=== PATIENT | female | born 1970 | race African-American/Black ===

== ENCOUNTER 2017-09-19 08:41 | Emergency (ER) | payer OTHER ==
[~2017-09-19] VITALS: Ht 175.3 cm; Wt 110.7 kg
[2017-09-19] MEDS ORDERED: CARVEDILOL12.5 MG PO (08:58)
[2017-09-19] MEDS ORDERED: HYDROCHLOROTH12.5 M1 PO (08:59)
[2017-09-19] MEDS ORDERED: AMLODIPINE BESY10 MG PO (08:59)
[2017-09-19 09:26] LABS: ABSOLUTE LYMPHOCYTES 2.1 thou/uL (0.8-5.3); ABSOLUTE MONOCYTES 0.5 thou/uL (0.0-1.2); ABSOLUTE NEUTROPHILS 4.3 thou/uL (1.6-8.1); BASOPHILS 0.4 %; HEMATOCRIT 36.6 % (37.0-47.0); HEMOGLOBIN 12.1 gm/dL (12.0-15.0); LYMPHOCYTES 29.7 %; MCH 28.1 pg (26.0-34.0); MONOCYTES 7.1 %; NUCLEATED RBCS 0 /100WBC; POLYS 62.8 %; RBC 4.31 mil/uL (4.20-5.00); RDW-CV 15.2 % (10.5-14.5); WBC 6.9 thou/uL (4.0-11.0)
[2017-09-19 09:28] LABS: URINE BILIRUBIN NEGATIVE (Negative); URINE BLOOD 2+ (Negative); URINE CLARITY CLEAR; URINE COLOR YELLOW; URINE GLUCOSE-RANDOM NEGATIVE (Negative); URINE KETONES NEGATIVE (Negative); URINE LEUKOCYTES-REFLEX NEGATIVE (Negative); URINE NITRITE-REFLEX NEGATIVE (Negative); URINE PROTEIN NEGATIVE (Negative); URINE SPECIFIC GRAVITY 1.015 (1.005-1.030); URINE UROBILINOGEN 0.2 E.U./dl (0.2-1.0)
[2017-09-19 09:32] LABS: ANION GAP 9 mmol/L (7-16); BUN 8 mg/dL (7-18); CALCIUM 9.7 mg/dL (8.5-10.1); CHLORIDE 101 mmol/L (98-107); CO2 27 mmol/L (21-32); GLUCOSE 132 mg/dL (70-99); POTASSIUM 3.3 mmol/L (3.5-5.1); SODIUM 137 mmol/L (136-145)
[2017-09-19 09:34] LABS: SQUAMOUS 0-3 Few /LPF (0-3); URINE RBC 3-10 Few /HPF (0-2); URINE WBC-REFLEX 0-5 Rare /HPF (0-5)
[2017-09-19 09:35] LABS: BACTERIA-REFLEX 1-9 Few /HPF (None Seen); CASTS None Seen /LPF (None Seen); CRYSTALS None Seen /LPF (None Seen); MUCUS None Seen strn/LPF (None Seen)
[2017-09-19 09:35] LABS: APTT 25.6 Seconds (25.0-31.3); INR 1.1; PROTIME 10.6 Seconds (9.20-11.50)
[2017-09-19 09:44] LABS: ALBUMIN 3.5 g/dL (3.4-5.0); ALKALINE PHOSPHATASE 62 U/L (46-116); NT-PRO BRAIN NAT PEPTIDE 330 pg/mL (<300); SGOT 32 U/L (15-37); SGPT 44 U/L (30-65); TOTAL BILIRUBIN 1.1 mg/dL (<0.1-1.0); TOTAL PROTEIN 8.4 g/dL (6.4-8.2); TROPONIN-I LEVEL <0.06 ng/mL (<0.06)
[2017-09-19 09:55] LABS: PLATELET COUNT* 200 thou/uL (150-400)
[2017-09-19 09:56] LABS: GIANT PLATELETS OCCASIONAL
[2017-09-19 10:09] LABS: MPV 10.7 fl. (7.2-11.1)
[2017-09-19] MEDS ORDERED: NORCO 5-325 TA1 EACH PO (10:28)
[2017-09-19] MEDS ORDERED: ZOFRAN ODT4 MG SUBLING (10:28)
[2017-09-19 10:41] VITALS: BP 146/85
--- NOTE | 2017-09-19 17:40 | EKG ---
[place] [address] ELECTROCARDIOGRAM REPORT Name: MARLENY VALENTIN Room: [facility]#: [id number] Admission: 09/19/17 Attend Phys: Discharge: 09/19/17 Date of : 68 Report #: [id number] THIS REPORT FOR: //name// [facility] ED Test Date: 2017-09-19 Test Time: 09:02:00 Pat Name: MARLENY VALENTIN Department: Room: Gender: F Commercial Property Administrator: Tao TRUJILLO : 1970 Requested By: Mazin Prince Order Number: [id number] MD: Leon Zuniga Measurements Intervals [place] Rate: 74 P: 62 NE: 168 QRS: 24 QRSD: 80 T: 17 QT: 390 QTc: 433 Interpretive Statements Sinus rhythm No previous ECG available for comparison Electronically Signed On 09-19-2017 17:40:36 HEALTH EDUCATION COORDINATOR by Leon Zuniga [email or web address] <ELECTRONICALLY SIGNED> By: Leon Zuniga MD, [facility] 09/19/17 1740 0902 09 Leon Zuniga MD, FACC /EPI
== END 2017-09-19 10:42 | disposition home or self-care (01) ==
LOC: M.ERS 08:41
PROVIDERS: Family Medicine
DX: R51 Headache (principal); I10 Essential (primary) hypertension; E11.9 Type 2 diabetes mellitus without complications; F10.99 Alcohol use, unspecified with unspecified alcohol-induced disorder; Z98.890 Other specified postprocedural states

== ENCOUNTER 2018-05-11 09:58 | Emergency (ER) | payer OTHER ==
[~2018-05-11] VITALS: Ht 175.3 cm; Wt 105.2 kg
[~2018-05-11 09:58] MED LIST: AMLODIPINE BESY10 MG PO; CARVEDILOL12.5 MG PO; HYDROCHLOROTH12.5 M1 PO; NORCO 5-325 TA1 EACH PO; ZOFRAN ODT4 MG SUBLING
[2018-05-11] MEDS ORDERED: KLOR-CON-EF 2525 ME1 PO (10:10)
[2018-05-11] MEDS ORDERED: LIPITOR 20 MG T20 M1 PO (10:10)
[2018-05-11] MEDS ORDERED: GLUCOTROL5 MG PO (10:10)
[2018-05-11] MEDS ORDERED: ASPIR 8181 MG PO (10:10)
[2018-05-11 10:22] LABS: URINE BLOOD 3+ (Negative); URINE CLARITY CLOUDY; URINE COLOR YELLOW; URINE GLUCOSE-RANDOM NEGATIVE (Negative); URINE KETONES TRACE (Negative); URINE LEUKOCYTES-REFLEX NEGATIVE (Negative); URINE NITRITE-REFLEX NEGATIVE (Negative); URINE PROTEIN 1+ (Negative); URINE SPECIFIC GRAVITY 1.025 (1.005-1.030); URINE UROBILINOGEN 0.2 E.U./dl (0.2-1.0)
[2018-05-11 10:24] LABS: ICTOTEST (BILI CONFIRMATORY) Negative (Negative); URINE BILIRUBIN 1+ (Negative)
[2018-05-11 10:32] LABS: CASTS None Seen /LPF (None Seen); CRYSTALS None Seen /LPF (None Seen); SQUAMOUS >10 Many /LPF (0-3)
[2018-05-11 10:33] LABS: BACTERIA-REFLEX >30 Many /HPF (None Seen); URINE RBC None Seen /HPF (0-2); URINE WBC-REFLEX 0-5 Rare /HPF (0-5)
[2018-05-11 10:42] LABS: APTT 24.1 Seconds (25.0-31.3); INR 1.1; PROTIME 10.8 Seconds (9.20-11.50)
[2018-05-11 10:52] LABS: ABSOLUTE LYMPHOCYTES 1.5 thou/uL (0.8-5.3); ABSOLUTE MONOCYTES 0.3 thou/uL (0.0-1.2); ABSOLUTE NEUTROPHILS 1.6 thou/uL (1.6-8.1); BASOPHILS 0.6 %; EOSINOPHILS 0.5 %; HEMATOCRIT 37.2 % (37.0-47.0); HEMOGLOBIN 12.3 gm/dL (12.0-15.0); LYMPHOCYTES 45.4 %; MCH 27.9 pg (26.0-34.0); MCV 84.6 fL (80.0-100.0); MONOCYTES 7.6 %; MPV 9.8 fl. (7.2-11.1); NUCLEATED RBCS 0 /100WBC; PLATELET COUNT* 176 thou/uL (150-400); POLYS 45.9 %; RDW-CV 15.1 % (10.5-14.5); WBC 3.4 thou/uL (4.0-11.0)
[2018-05-11 11:00] LABS: ANION GAP 9 mmol/L (7-16); BUN 13 mg/dL (7-18); CHLORIDE 100 mmol/L (98-107); CO2 26 mmol/L (21-32); CREATININE 1.1 mg/dL (0.6-1.3); GLUCOSE 198 mg/dL (70-99); SODIUM 135 mmol/L (136-145)
[2018-05-11 11:11] LABS: ALBUMIN 3.3 g/dL (3.4-5.0); ALKALINE PHOSPHATASE 101 U/L (46-116); NT-PRO BRAIN NAT PEPTIDE 8 pg/mL (<300); SGOT 42 U/L (15-37); SGPT 87 U/L (30-65); TOTAL BILIRUBIN 1.9 mg/dL (<0.1-1.0); TOTAL PROTEIN 8.3 g/dL (6.4-8.2); TROPONIN-I LEVEL <0.06 ng/mL (<0.06)
[2018-05-11 11:12] LABS: POTASSIUM 2.4 mmol/L (3.5-5.1)
[2018-05-11] MEDS ORDERED: POTASSIUM20 PO (11:41)
[2018-05-11] MEDS ORDERED: ZOFRAN ODT4 MG SUBLING (11:41)
[2018-05-11 11:51] VITALS: BP 127/80
--- NOTE | 2018-05-12 10:57 | EKG ---
[place] [address] ELECTROCARDIOGRAM REPORT Name: BARBIECONSTANTINOMARLENY CHAPIN Room: [facility]#: [id number] Admission: 05/11/18 Attend Phys: Discharge: 05/11/18 Date of : 68 Report #: [id number] THIS REPORT FOR: //name// [facility] ED Test Date: 2018-05-11 Test Time: 10:26:22 Pat Name: MARLENY VALENTIN Department: Room: Gender: F Restaurant Busser: Tao TRUJILLO : 1970 Requested By: Mazin Prince Order Number: [id number] MD: Shawn Herman Measurements Intervals [place] Rate: 83 P: 50 [place]: 165 QRS: 24 QRSD: 82 T: 18 QT: 292 QTc: 343 Interpretive Statements Sinus rhythm Consider left ventricular hypertrophy Borderline T abnormalities, inferior leads Baseline wander in lead(s) V1 Compared to ECG 09/19/2017 09:02:00 T-wave abnormality now present Electronically Signed On 05-12-2018 10:57:39 CDT by Shawn Herman [email or web address] <ELECTRONICALLY SIGNED> By: Jenise Herman MD, [facility] 05/12/18 1057 1026 1026 Jenise Herman MD, [facility] /EPI
== END 2018-05-11 11:51 | disposition home or self-care (01) ==
LOC: M.ERS 09:58
PROVIDERS: Family Medicine
DX: R53.1 Weakness (principal); E87.6 Hypokalemia; R11.2 Nausea with vomiting, unspecified; R42 Dizziness and giddiness; R19.7 Diarrhea, unspecified; I10 Essential (primary) hypertension; E11.9 Type 2 diabetes mellitus without complications; Z98.890 Other specified postprocedural states

== ENCOUNTER 2019-01-15 13:43 | Emergency (ER) | payer OTHER ==
[~2019-01-15] VITALS: Ht 175.3 cm; Wt 97.5 kg
[~2019-01-15 13:43] MED LIST changes: +ASPIR 8181 MG PO; +GLUCOTROL5 MG PO; +KLOR-CON-EF 2525 ME1 PO; +LIPITOR 20 MG T20 M1 PO; +POTASSIUM20 PO
[2019-01-15 14:41] LABS: ABSOLUTE LYMPHOCYTES 1.6 thou/uL (0.8-5.3); ABSOLUTE MONOCYTES 0.3 thou/uL (0.0-1.2); ABSOLUTE NEUTROPHILS 1.6 thou/uL (1.6-8.1); BASOPHILS 1.2 %; EOSINOPHILS 0.2 %; HEMATOCRIT 38.9 % (37.0-47.0); LYMPHOCYTES 46.6 %; MCH 28.5 pg (26.0-34.0); MCHC 33.4 g/dL (28.0-37.0); MCV 85.3 fL (80.0-100.0); MONOCYTES 7.7 %; MPV 9.6 fl. (7.2-11.1); NUCLEATED RBCS 0 /100WBC; PLATELET COUNT* 219 thou/uL (150-400); POLYS 44.3 %; RBC 4.57 mil/uL (4.20-5.00); RDW-CV 15.5 % (10.5-14.5); WBC 3.5 thou/uL (4.0-11.0)
[2019-01-15 14:51] LABS: CALCIUM 9.3 mg/dL (8.5-10.1); CREATININE 0.7 mg/dL (0.6-1.3); POTASSIUM 4.2 mmol/L (3.5-5.1)
[2019-01-15 14:56] LABS: ALBUMIN 3.5 g/dL (3.4-5.0); TOTAL BILIRUBIN 1.9 mg/dL (<0.1-1.0); TOTAL PROTEIN 8.4 g/dL (6.4-8.2)
[2019-01-15 15:08] LABS: URINE BILIRUBIN NEGATIVE (Negative); URINE BLOOD 2+ (Negative); URINE CLARITY CLEAR; URINE COLOR DARK YELLOW; URINE GLUCOSE-RANDOM NEGATIVE (Negative); URINE KETONES NEGATIVE (Negative); URINE LEUKOCYTES NEGATIVE (Negative); URINE NITRITE NEGATIVE (Negative); URINE PROTEIN 1+ (Negative); URINE UROBILINOGEN 0.2 E.U./dl (0.2-1.0)
[2019-01-15 15:31] LABS: BACTERIA 1-9 Few /HPF (None Seen); MUCUS None Seen strn/LPF (None Seen); SQUAMOUS >10 Many /LPF (0-3); URINE RBC 3-10 Few /HPF (0-2); URINE WBC None Seen /HPF (0-5)
[2019-01-15] MEDS ORDERED: ZOFRAN ODT4 MG DISSOLVE (15:31)
[2019-01-15 15:32] LABS: CASTS None Seen /LPF (None Seen); CRYSTALS None Seen /LPF (None Seen)
[2019-01-15 15:43] VITALS: BP 148/91
--- NOTE | 2019-01-16 14:43 | EKG ---
[place] [address] ELECTROCARDIOGRAM REPORT Name: MARLENY VALENTIN Room: [facility]#: [id number] Admission: 01/15/19 Attend Phys: Discharge: 01/15/19 Date of : 68 Report #: [id number] THIS REPORT FOR: //name// [facility] ED Test Date: 2019-01-15 Test Time: 13:59:29 Pat Name: MARLENY VALENTIN Department: Room: Gender: F Compliance Professional: JONAS : 1970 Requested By: Sylvester Dewey Order Number: [id number] Reading MD: Leon Zuniga Measurements Intervals [place] Rate: 91 P: 55 [place]: 151 QRS: 19 QRSD: 80 T: -22 QT: 356 QTc: 439 Interpretive Statements Sinus rhythm Borderline T abnormalities, inferior leads Compared to ECG 05/11/2018 10:26:22 No significant changes Electronically Signed On 01-16-2019 14:43:35 CDT by Leon Zuniga [email or web address] <ELECTRONICALLY SIGNED> By: Leon Zuniga MD, [facility] 01/16/19 1443 1359 1359 Leon Zuniga MD, FACC /EPI
== END 2019-01-15 15:43 | disposition home or self-care (01) ==
LOC: M.ERS 13:43
PROVIDERS: Nurse Practitioner Family
DX: A08.4 Viral intestinal infection, unspecified (principal); I10 Essential (primary) hypertension; E11.9 Type 2 diabetes mellitus without complications